=== PATIENT | female | born 1975 | race Caucasian/White ===

== ENCOUNTER 2019-02-24 05:20 | Emergency (ER) | payer MEDICAID ==
[~2019-02-24] VITALS: Ht 165.1 cm; Wt 63.5 kg
[2019-02-24 05:46] VITALS: BP_SYST 121
[2019-02-24] MEDS ORDERED: METOCLOPRAMIDE HCL 10 MG/2 ML VIAL IM ONE (07:15)
[2019-02-24] MEDS ORDERED: KETOROLAC TROMETHAMINE 60 MG/2 ML VIAL IM ONE (07:15)
[2019-02-24 08:15] VITALS: BP_SYST 121
== END 2019-02-24 08:15 | disposition home or self-care (01) ==
LOC: SED 05:20
DX: J01.90 Acute sinusitis, unspecified (principal)
CPT/HCPCS: 71046; 96372; 99283; J1885; J2765